=== PATIENT | male | born 1935 | race Caucasian/White ===

== ENCOUNTER 2017-10-09 21:14 | Inpatient (IN) | payer MEDICARE ==
[2017-10-09 21:23] VITALS: BP 132/70; PULSE 96; RESP 14; TEMP 99.5; O2SAT 95
[2017-10-09] MEDS ORDERED: SODIUM CHLORIDE 0.9% FLUSH 10 ML FLUSH IVF PRN (21:45)
[2017-10-09] MEDS ORDERED: LISI-515 PO (21:45)
[2017-10-09] MEDS ORDERED: ASPI-516 CHEW (21:45)
--- NOTE | 2017-10-09 21:56 | PD ---
HPI Chief Complaint: GI Complaint Time Seen by Provider: 21:34 Travel History International Travel<30 days: No Contact w/Intl Traveler<30days: No Traveled to known affect area: No History of Present Illness HPI The patient is a 81 year old male who presents to the [facility] emergency department with a history of cough and congestion that began 2-3 days ago. He reports that he has had an associated clear rhinorrhea and dry cough. The patient reports that over the last day he is also been experiencing urinary frequency and urgency without dysuria. He reports that he only urinates a small amount at a time on an hourly basis. He denies any prior history of UTI or prostate disease. He reports that he is visiting from [place]. He is on a bus tour. He plans on returning back in a few days. He reports that he had a subjective fever yesterday. He has had nausea without vomiting or diarrhea. He reports that when he urinates he has noticed some blood coming from his rectum. He denies having any blood in his usual bowel movement yesterday. He denies having any black or tarry stools. He reports that he has been diagnosed with internal hemorrhoids in the past. His last colonoscopy was 3 years ago and was otherwise unremarkable. He reports having generalized weakness and body aches. He reports having dyspnea on exertion. He reports having chest tightness with coughing. On review of systems otherwise, he denies having neck pain, abdominal pain, vomiting, diarrhea,or neurologic symptoms. [facility] Past Medical History Narrative Medical The patient's past medical history is significant for hypertension, hyperlipidemia, and acid reflux, history of glaucoma GERD: Yes Hypertension: Yes Tetanus Vaccination: < 5 Years Influenza Vaccination: Yes Past Surgical History Narrative Surgical The patient's past surgical history is significant for rotator cuff surgery on the right. Social History Alcohol Use: Yes (occ) Tobacco Use: No Substance Use: No Allergies-Medications (Allergen,Severity, Reaction): Coded Allergies: No Known Allergies (Verified Allergy, Severe, 10/09/17) Reported Meds & Prescriptions Reported Meds & Active Scripts Active Reported Aspirin 81 Mg Chew 81 Mg CHEW DAILY Lisinopril 20 Mg Tab 20 Mg PO DAILY Narrative Medication Ibuprofen 200 mg twice a day for arthritic pain Review of Systems Except as stated in HPI: all other systems reviewed are Neg General / Constitutional: No: Fever Eyes: No: Visual changes HENT: Positive: Rhinorrhea, Congestion, No: Headaches, Sore Throat Cardiovascular: Positive: Dyspnea on exertion, No: Chest Pain or Discomfort Respiratory: Positive: Cough, Shortness of Breath Gastrointestinal: Positive: Hematochezia, Changes in Bowel Habits, Loss of Appetite, No: Nausea, Vomiting, Diarrhea, Abdominal Pain Genitourinary: Positive: Urgency, Frequency, No: Dysuria Musculoskeletal: No: Pain Skin: No Rash Neurologic: Positive: Weakness (Generalized weakness), No: Focal Abnormalities , Change in Mentation, Slurred Speech, Sensory Disturbance Psychiatric: No: Depression Endocrine: No: Polydipsia Hematologic/Lymphatic: No: Easy Bruising Physical Exam Narrative General: The patient is a well-developed well-nourished male in no acute distress. Head and Neck exam: Head is normocephalic atraumatic. Eyes: EOMI, pupils are equal round and reactive to light. Nose: Midline septum with erythematous edematous nasal mucosa and a clear nasal discharge. Mouth: Dentition unremarkable. Moist mucus membranes. Posterior oropharynx is not erythematous. No tonsillar hypertrophy. Uvula midline. Airway patent. Neck: No palpable lymphadenopathy. No nuchal rigidity. No thyromegaly. Cardiovascular: Regular rate and rhythm without murmurs, gallops, or rubs. No pulse deficit to the extremities on simultaneous auscultation and palpation of his radial artery. Lungs: Clear to auscultation bilaterally. No wheezes, rhonchi, or rales. Abdomen: Soft, with reported suprapubic tenderness on palpation, no other tenderness on palpation of the other quadrants of the abdomen. Normal bowel sounds are audible. No tenderness on palpation of McBurney's point. Negative Wray sign. No guarding, rebound, or rigidity. Extremities: No clubbing, cyanosis, or edema. 2+ pulses in all 4 extremities. No calf tenderness on palpation. Back: No costovertebral angle tenderness to palpation. Neurologic Exam: Grossly nonfocal. Skin Exam: No rash noted. Intact skin that is warm and dry. Data Data Last Documented VS Vital Signs Date Time Temp Pulse Resp B/P (MAP) Pulse Ox O2 Delivery O2 Flow Rate FiO2 10/09/17 23:39 74 20 117/57 (77) 98 10/09/17 22:53 Nasal Cannula 2.00 10/09/17 21:23 99.5 Orders Orders Complete Blood Count With Diff (10/09/17 21:43) Comprehensive Metabolic Panel (10/09/17 21:43) Lipase (10/09/17 21:43) Prothrombin Time / Inr (Pt) (10/09/17 21:43) Act Partial Throm Time (Ptt) (10/09/17 21:43) Urinalysis - C+S If Indicated (10/09/17 21:43) Type And Screen (10/09/17 21:43) Chest, Single Ap (10/09/17 21:43) Ecg Monitoring (10/09/17 21:43) Iv Access Insert/Monitor (10/09/17 21:43) Oximetry (10/09/17 21:43) Sodium Chloride 0.9% Flush (Ns Flush) (10/09/17 21:45) Creatine Kinase (Cpk) (10/09/17 21:43) Troponin I (10/09/17 21:43) B-Type Natriuretic Peptide (10/09/17 21:43) Influenzae A/B Antigen (10/09/17 21:43) Sodium Chlorid 0.9% 500 Ml Inj (Ns 500 M (10/09/17 22:15) Pantoprazole Inj (Protonix Inj) (10/09/17 22:15) Pantoprazole Inj (Protonix Inj) (10/09/17 22:15) CKMB (10/09/17 21:45) CKMB% (10/09/17 21:45) Oseltamivir (Tamiflu) (10/09/17 23:00) Ct Abd/Pel W Iv Contrast(Rout) (10/09/17 22:49) Sodium Chlorid 0.9% 500 Ml Inj (Ns 500 M (10/09/17 23:00) Iohexol 350 Inj (Omnipaque 350 Inj) (10/09/17 23:28) Urinary Catheter Insert/Apply (10/10/17 00:09) Admit Order (Ed Use Only) (10/10/17 00:13) Labs Laboratory Tests Test 10/09/17 21:45 White Blood Count 6.9 TH/MM3 Red Blood Count 3.65 MIL/MM3 Hemoglobin 12.7 GM/DL Hematocrit 35.7 % Mean Corpuscular Volume 97.7 FL Mean Corpuscular Hemoglobin 34.9 PG Mean Corpuscular Hemoglobin Concent 35.7 % Red Cell Distribution Width 13.0 % Platelet Count 162 TH/MM3 Mean Platelet Volume 8.9 FL Neutrophils (%) (Auto) 75.4 % Lymphocytes (%) (Auto) 10.3 % Monocytes (%) (Auto) 14.2 % Eosinophils (%) (Auto) 0.0 % Basophils (%) (Auto) 0.1 % Neutrophils # (Auto) 5.2 TH/MM3 Lymphocytes # (Auto) 0.7 TH/MM3 Monocytes # (Auto) 1.0 TH/MM3 Eosinophils # (Auto) 0.0 TH/MM3 Basophils # (Auto) 0.0 TH/MM3 CBC Comment DIFF FINAL Differential Comment Prothrombin Time 11.0 SEC Prothromb Time International Ratio 1.1 RATIO Activated Partial Thromboplast Time 28.2 SEC Blood Urea Nitrogen 19 MG/DL Creatinine 1.09 MG/DL Random Glucose 118 MG/DL Total Protein 7.0 GM/DL Albumin 3.4 GM/DL Calcium Level 8.5 MG/DL Alkaline Phosphatase 68 U/L Aspartate Amino Transf (AST/SGOT) 36 U/L Alanine Aminotransferase (ALT/SGPT) 25 U/L Total Bilirubin 0.3 MG/DL Sodium Level 136 MEQ/L Potassium Level 4.3 MEQ/L Chloride Level 106 MEQ/L Carbon Dioxide Level 21.6 MEQ/L Anion Gap 8 MEQ/L Estimat Glomerular Filtration Rate 65 ML/MIN Total Creatine Kinase 740 U/L Creatine Kinase MB 1.8 NG/ML Creatine Kinase MB % 0.2 % Troponin I 0.05 NG/ML B-Type Natriuretic Peptide 171 PG/ML Lipase 208 U/L [facility] Medical Decision Making Medical Screen Exam Complete: Yes Emergency Medical Condition: Yes Medical Record Reviewed: Yes Interpretation(s) Last Impressions Abdomen/Pelvis CT 10/09/17 5096 Signed Impressions: Service Date/Time: Monday, October 09, 2017 23:13 - CONCLUSION: 1. Several punctate bilateral renal calyceal calculi. No hydronephrosis. 2. Moderate to severe distention of urinary bladder consistent with bladder outlet obstruction versus neurogenic bladder. Patient may benefit from Bunch decompression. 3. Colonic diverticulosis without significant inflammatory change to suggest diverticulitis. 4. 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 5. Subcentimeter hypodense cystic lesion in the left kidney which is too small to fully characterize. 6. Levoscoliosis of the lumbar spine with associated advanced degenerative spondylosis. Collin Silver MD Chest X-Ray 10/09/178 Signed Impressions: Service Date/Time: Monday, October 09, 2017 22:11 - CONCLUSION: 1. No acute cardiopulmonary disease. Bob Andres MD Differential Diagnosis Pneumonia, versus influenza, versus acute coronary syndrome, versus congestive heart failure. Regarding the patient's rectal bleeding, this could be related to hemorrhoids, versus peptic ulcer disease, versus AVM malformation, versus diverticulosis Narrative Course During the course of the patient's emergency department visit, the patient's history, examination, and differential diagnosis were reviewed with the patient. The patient was placed on a medical billing specialist with oximetry and frequent blood pressure monitoring. The patient had IV access obtained and blood work sent for analysis. The patient had an EKG done on arrival. The patient was typed and screened for blood The patient was initially provided normal saline at 500 mL bolus 1. The patient was started on Protonix 80 mg IV followed by a Protonix drip. The patient's laboratory studies were reviewed and remarkable for a white count of 6.9, hemoglobin 12.7, platelets 162 with 75.4 neutrophils, monocytes 14.2, CMP is remarkable for BUN of 19, GFR 65, glucose 118, CPK 740, MB percent 0.2, troponin I 0.05, BNP 171, lipase 208. PT 11, PTT 28.2, urinalysis unremarkable. The patient's influenza testing was positive for influenza A antigen. The patient was given Tamiflu 75 mg p.o. 1. Radiology studies were reviewed and remarkable for a chest x-ray that shows no acute cardiopulmonary disease, CT scan of the abdomen pelvis shows several punctate bilateral renal calculi no hydronephrosis, moderate to severe distention of the urinary bladder consistent with bladder outlet obstruction versus neurogenic bladder. Patient may benefit from Bunch catheter decompression. A Bunch catheter was placed to gravity in this patient. 1500 mL of urine was evacuated. The patient will have his catheter maintained. CT scan also reveals colonic diverticulosis without inflammatory change, small focal saccular distal aortic aneurysm measuring up to 2.7 cm. The patient will be admitted to the hospital for evaluation and treatment of a GI bleed, influenza, urinary retention. The patient's results were discussed with the patient, including the plan of care. I explained that further testing and/ or monitoring is indicated based on the patient's history, examination, and/ or laboratory findings. Therefore, I recommended admission for additional evaluation. The patient expressed understanding and was agreeable with this plan. The patient was admitted to the hospital in guarded condition and [facility] Phys[facility] Communication Physician Communication The patient's case including history, pertinent physical examination findings, and laboratory studies were discussed with Kenyatta the nurse practitioner. It was agreed that the [facility] Diagnosis Primary Impression: GI bleed Qualified Codes: K92.1 - Melena Additional Impressions: Urinary retention Influenza Admitting Information Admitting Physician Requests: it Chyna Palmer MD Oct 09, 2017 21:56
[2017-10-09 22:00] VITALS: BP 96/62; PULSE 73; RESP 20; O2SAT 98
[2017-10-09] MEDS ORDERED: PANTOPRAZOLE INJ 80 MG in SODIUM CHLORIDE 0.9% INJ 35 ML IV ONE (22:15)
[2017-10-09] MEDS ORDERED: PANTOPRAZOLE INJ 80 MG in SODIUM CHLORIDE 0.9% INJ 100 ML IV SCH (22:15)
[2017-10-09] MEDS ORDERED: SODIUM CHLORID 0.9% 500 ML INJ 500 ML IV ONE ×2 (22:15→23:00)
[2017-10-09 22:18] LABS: AUTOMATED NEUTROPHIL # 5.2 TH/MM3 (1.8-7.7); BASOPHIL % 0.1 % (0.0-2.0); HEMATOCRIT 35.7 % (39.0-51.0); HEMOGLOBIN 12.7 GM/DL (13.0-17.0); LYMPH % 10.3 % (9.0-44.0); LYMPHOCYTE # 0.7 TH/MM3 (1.0-4.8); MEAN CELL VOLUME 97.7 FL (80.0-100.0); MEAN CORPUSCULAR HEMOGLOBIN 34.9 PG (27.0-34.0); MEAN CORPUSCULAR HGB CONC 35.7 % (32.0-36.0); MEAN PLATELET VOLUME 8.9 FL (7.0-11.0); MONO % 14.2 % (0.0-8.0); NEUT % 75.4 % (16.0-70.0); PLATELET COUNT 162 TH/MM3 (150-450); RED BLOOD COUNT 3.65 MIL/MM3 (4.50-5.90); WHITE BLOOD COUNT 6.9 TH/MM3 (4.0-11.0)
[2017-10-09 22:20] LABS: INTERNATIONAL NORMALIZED RATIO 1.1 RATIO
[2017-10-09 22:21] LABS: ALBUMIN 3.4 GM/DL (3.4-5.0); AST (GOT) 36 U/L (15-37); BICARBONATE 21.6 MEQ/L (21.0-32.0); BLOOD UREA NITROGEN 19 MG/DL (7-18); CALCIUM 8.5 MG/DL (8.5-10.1); CHLORIDE 106 MEQ/L (98-107); CREATININE 1.09 MG/DL (0.60-1.30); GLOMERULAR FILTRATION RATE 65 ML/MIN (>89); GLUCOSE,RANDOM 118 MG/DL (74-106); SODIUM (NA) 136 MEQ/L (136-145)
[2017-10-09 22:23] LABS: ALT (GPT) 25 U/L (12-78)
--- NOTE | 2017-10-09 22:24 | RADRPT ---
EXAM DATE/TIME: 10/09/2017 22:11 [facility] COMPARISON: No previous studies available for comparison. INDICATIONS : Shortness of breath. MEDICAL HISTORY : None. SURGICAL HISTORY : None. ENCOUNTER: Initial ACUITY: 1 day PAIN SCORE: 0/10 LOCATION: Bilateral chest FINDINGS: A single view of the chest demonstrates the lungs to be symmetrically aerated without evidence of mas s, infiltrate or effusion. The cardiomediastinal contours are unremarkable. Osseous structures are intact. CONCLUSION: 1. No acute cardiopulmonary disease. Bob Andres MD on October 09, 2017 at 22:23 Board Certified Radiologist. This report was verified electronically.
[2017-10-09 22:28] LABS: ALKALINE PHOSPHATASE 68 U/L (45-117); TOTAL BILIRUBIN ADULT 0.3 MG/DL (0.2-1.0); TROPONIN I 0.05 NG/ML (0.02-0.05)
[2017-10-09 22:30] VITALS: BP 108/56; PULSE 74; RESP 20; O2SAT 97
[2017-10-09 22:53] VITALS: BP 115/61; PULSE 75; RESP 20; O2SAT 98
[2017-10-09] MEDS ORDERED: OSELTAMIVIR PHOSPHATE 75 MG CAP PO ONE (23:00)
[2017-10-09] MEDS ORDERED: IOHEXOL 350 MG/ML 10 ML VIAL (for RAD DIAG) IVCONTRAST ONE (23:28)
[2017-10-09 23:39] VITALS: BP 117/57; PULSE 74; RESP 20; O2SAT 98
--- NOTE | 2017-10-09 23:51 | RADRPT ---
EXAM DATE/TIME: 10/09/2017 23:13 [facility] COMPARISON: No previous studies available for comparison. INDICATIONS : Lower abdominal pain, dysuria and blood in stool. IV CONTRAST: 90 cc Omnipaque 350 (iohexol) IV ORAL CONTRAST: No oral contrast ingested. RADIATION DOSE: 9.36 CTDIvol (mGy) MEDICAL HISTORY : Hypertension. Gastroesophageal reflux disease. SURGICAL HISTORY : None. ENCOUNTER: Initial ACUITY: 2 days PAIN SCALE: 7/10 LOCATION: Abdomen. TECHNIQUE: Volumetric scanning of the abdomen and pelvis was performed. Using automated exposure control and ad justment of the mA and/or kV according to patient size, radiation dose was kept as low as reasonably achievable to obtain optimal diagnostic quality images. DICOM format image data is available electro nically for review and comparison. FINDINGS: LOWER LUNGS: The visualized lower lungs are clear. LIVER: Homogeneous density without lesion. There is no dilation of the biliary tree. No calcified gallston es. SPLEEN: Normal size without lesion. PANCREAS: Within normal limits. KIDNEYS: Indeterminate density subcentimeter hypodense cystic lesion in the mid left kidney posteriorly. Punct ate bilateral calyceal calculi. Kidneys otherwise demonstrate symmetrical enhancement without hydrone phrosis. ADRENAL GLANDS: Within normal limits. VASCULAR: Focal saccular distal aortic aneurysm measuring up to 2.7 cm with moderate mural thrombus. BOWEL/MESENTERY: The stomach, small bowel, and colon demonstrate no acute abnormality. Mild sigmoid diverticulosis. S cattered colonic diverticula in the remainder of the colon. No significant inflammatory change. There is no free intraperitoneal air or fluid. ABDOMINAL WALL: Within normal limits. RETROPERITONEUM: There is no lymphadenopathy. BLADDER: Moderate to severely distended bladder. No focal bladder wall thickening or bladder calculi. REPRODUCTIVE: Within normal limits. INGUINAL: There is no lymphadenopathy or hernia. MUSCULOSKELETAL: Levoscoliosis of the lumbar spine with advanced degenerative spondylosis of the lower lumbar spine. CONCLUSION: 1. Several punctate bilateral renal calyceal calculi. No hydronephrosis. 2. Moderate to severe distention of urinary bladder consistent with bladder outlet obstruction versus neurogenic bladder. Patient may benefit from Bunch decompression. 3. Colonic diverticulosis without significant inflammatory change to suggest diverticulitis. 4. 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 5. Subcentimeter hypodense cystic lesion in the left kidney which is too small to fully characterize. 6. Levoscoliosis of the lumbar spine with associated advanced degenerative spondylosis. Collin Silver MD on October 09, 2017 at 23:44 Board Certified Radiologist. This report was verified electronically.
[2017-10-10] VITALS (8 sets, daily range): BP systolic 115–129; BP diastolic 57–79; PULSE 78–85; RESP 16–20; TEMP 98.7–99.2; O2SAT 95–97
--- NOTE | 2017-10-10 00:39 | HHI.HP ---
[facility]Staff Admission Diagnosis GI Bleed, Influenza, Urinary retention Diagnoses: (1) GI bleed (2) Influenza (3) Urinary retention Chief Complaint: Cough and congestion Urinary retention Rectal bleed Travel History International Travel<30 Days: No Contact w/Intl Traveler <30 Da: No Traveled to Known Affected Are: No History of Present Illness This is a pleasant 81-year-old male patient with known medical history of hypertension and GERD who presented to the ED with multiple complaints including cough and congestion, urinary retention and rectal bleeding. Patient states that for the past 2 days he has had a nonproductive cough and congestion , shortness of breath, generalized weakness and body aches. Is also complains of urinary frequency, denies any dysuria. Does admit to subjective fevers. Denies any nausea, vomiting or diarrhea. Does state that he is noticed blood from his rectum as well for the past 2 days. Denies any history of UTI or kidney stones. Does admit to hemorrhoids. Underwent a colonoscopy 3 years ago which was reportedly unremarkable. Patient does take a daily aspirin. As well as ibuprofen for arthritic pain twice a day. Does admit to poor appetite. Patient is visiting from [place] on a bus tour. Supposed to return home on Sunday morning. Review of Systems Constitutional: COMPLAINS OF: Fatigue, Fever, Chills Eyes: DENIES: Blurred vision, Diplopia Respiratory: COMPLAINS OF: Cough, Shortness of breath, DENIES: Sputum production Cardiovascular: DENIES: Chest pain, Palpitations Gastrointestinal: COMPLAINS OF: Bloody stools, DENIES: Abdominal pain, Black stools, Constipation, Diarrhea, Nausea, Vomiting Musculoskeletal: DENIES: Joint pain Neurologic: DENIES: Abnormal gait Psychiatric: DENIES: Anxiety Except as stated in HPI: all other systems reviewed are Neg Past Family Social History Past Medical History Hypertension GERD Past Surgical History Rotator cuff repair Reported Medications Active Reported Aspirin 81 Mg Chew 81 Mg CHEW DAILY Lisinopril 20 Mg Tab 20 Mg PO DAILY Allergies: Coded Allergies: No Known Allergies (Verified Allergy, Severe, 10/09/17) Active Ordered Medications Current Medications Medications (Trade) Dose Ordered Sig/Stu Route Start Time Stop Time Status Last Admin (NS Flush) 2 ml UNSCH PRN IVF 10/09/17 21:45 Pantoprazole Sodium 80 mg/ Sodium Chloride 100 ml @ 10 mls/hr CONTINUOUS IV 10/09/17 22:15 10/09/17 22:51 Sodium Chloride 1,000 ml @ 75 mls/hr [id number] IV 10/10/17 00:31 (NS Flush) 2 ml UNSCH PRN IV FLUSH 10/10/17 00:45 (NS Flush) 2 ml BID IV FLUSH 10/10/17 09:00 (Tylenol) 650 mg Q4H PRN PO 10/10/17 00:45 (Zofran Inj) 4 mg Q6H PRN IVP 10/10/17 00:45 (Narcan Inj) 0.4 mg UNSCH PRN IV PUSH 10/10/17 00:45 (Gilma-Colace) 1 tab BID PO 10/10/17 09:00 (Milk Of Magnnatty Liq) 30 ml Q12H PRN PO 10/10/17 00:45 (Senokot) 17.2 mg Q12H PRN PO 10/10/17 00:45 (Dulcolax Supp) 10 mg DAILY PRN RECTAL 10/10/17 00:45 (Prinivil) 20 mg DAILY PO 10/10/17 09:00 (Tamiflu) 75 mg BID PO 10/10/17 09:00 Family History Maternal medical history significant for diabetes in [place]. Social History Denies any tobacco use. Does admit to occasional alcohol use. Denies any illicit drug use. Physical Exam Vital Signs Vital Signs Date Time Temp Pulse Resp B/P (MAP) Pulse Ox O2 Delivery O2 Flow Rate FiO2 10/10/17 00:38 79 20 117/57 (77) 97 Nasal Cannula 10/09/17 23:39 74 20 117/57 (77) 98 10/09/17 22:53 75 20 115/61 (79) 98 Nasal Cannula 2.00 10/09/17 22:30 74 20 108/56 (73) 97 Nasal Cannula 2.00 10/09/17 22:00 73 20 96/62 (73) 98 Nasal Cannula 2.00 10/09/17 21:49 18 10/09/17 21:23 99.5 96 14 132/70 (02) 95 Physical Exam GENERAL: Well-developed, well-nourished patient in NAD. On supplemental O2. SKIN: Warm and dry. No rash. HEAD: Normocephalic. Atraumatic. EYES: Pupils equal and round. No scleral icterus. No injection or drainage. ENT: No nasal bleeding or discharge. Mucous membranes pink and moist. NECK: Supple. Trachea midline. CARDIOVASCULAR: Regular rate and rhythm. S1, S2 noted. No murmur appreciated. RESPIRATORY: No accessory muscle use. Clear to auscultation. Breath sounds equal bilaterally. GASTROINTESTINAL: Abdomen soft, non-tender, nondistended. Normoactive bowel sounds x4. : Bunch catheter MUSCULOSKELETAL: No obvious deformities. Extremities without clubbing, cyanosis , or edema. NEUROLOGICAL: Awake and alert. No obvious cranial nerve deficits. Motor grossly within normal limits. 5/5 muscle strength in bilateral upper and lower extremities. Normal speech. Laboratory Laboratory Tests Test 10/09/17 21:45 White Blood Count 6.9 Red Blood Count 3.65 Hemoglobin 12.7 Hematocrit 35.7 Mean Corpuscular Volume 97.7 Mean Corpuscular Hemoglobin 34.9 Mean Corpuscular Hemoglobin Concent 35.7 Red Cell Distribution Width 13.0 Platelet Count 162 Mean Platelet Volume 8.9 Neutrophils (%) (Auto) 75.4 Lymphocytes (%) (Auto) 10.3 Monocytes (%) (Auto) 14.2 Eosinophils (%) (Auto) 0.0 Basophils (%) (Auto) 0.1 Neutrophils # (Auto) 5.2 Lymphocytes # (Auto) 0.7 Monocytes # (Auto) 1.0 Eosinophils # (Auto) 0.0 Basophils # (Auto) 0.0 CBC Comment DIFF FINAL Differential Comment Prothrombin Time 11.0 Prothromb Time International Ratio 1.1 Activated Partial Thromboplast Time 28.2 Blood Urea Nitrogen 19 Creatinine 1.09 Random Glucose 118 Total Protein 7.0 Albumin 3.4 Calcium Level 8.5 Alkaline Phosphatase 68 Aspartate Amino Transf (AST/SGOT) 36 Alanine Aminotransferase (ALT/SGPT) 25 Total Bilirubin 0.3 Sodium Level 136 Potassium Level 4.3 Chloride Level 106 Carbon Dioxide Level 21.6 Anion Gap 8 Estimat Glomerular Filtration Rate 65 Total Creatine Kinase 740 Creatine Kinase MB 1.8 Creatine Kinase MB % 0.2 Troponin I 0.05 B-Type Natriuretic Peptide 171 Lipase 208 Date/Time Source Procedure Growth Status 10/09/17 21:45 Nasal Aspirate Influenza Types A,B Antigen (CHANCE) - Final Positive For Flu A Antigen Complete Result Diagram: 10/09/17214410/09/172144 Septic Shock Reassessment Septic shock perfusion: reassessment completed Caprini VTE Risk Assessment Caprini VTE Risk Assessment: Mod/High Risk (score >= 2) Caprini Risk Assessment Model Point Value = 1 Point Value = 2 Point Value = 3 Point Value = 5 Age 41-60 Minor surgery BMI > 25 kg/m2 Swollen legs Varicose veins or History of unexplained or recurrent spontaneous Oral contraceptives or hormone replacement Sepsis (< 1 month) Serious lung disease, including pneumonia (< 1 month) Abnormal pulmonary function Acute myocardial infarction Congestive heart failure (< 1 month) History of inflammatory bowel disease Medical patient at bed rest Age 61-74 Arthroscopic surgery Major open surgery (> 45 min) Laparoscopic surgery (> 45 min) Malignancy Confined to bed (> 72 hours) Immobilizing plaster cast Central venous access Age >= 75 History of VTE Family history of VTE Factor V Leiden Prothrombin [id number] Lupus anticoagulant Anticardiolipin antibodies Elevated serum homocysteine Heparin-induced thrombocytopenia Other congenital or acquired thrombophilia Stroke (< 1 month) Elective arthroplasty Hip, pelvis, or leg fracture Acute spinal cord injury (< 1 month) Prophylaxis Regimen Total Risk Factor Score Risk Level Prophylaxis Regimen 0-1 Low Early ambulation 2 Moderate Order ONE of the following: *Sequential Compression Device (SCD) *Heparin 5000 units SQ BID 3-4 Higher Order ONE of the following medications: *Heparin 5000 units SQ TID *Enoxaparin/Lovenox 40 mg SQ daily (WT < 150 kg, CrCl > 30 mL/min) *Enoxaparin/Lovenox 30 mg SQ daily (WT < 150 kg, CrCl > 10-29 mL/min) *Enoxaparin/Lovenox 30 mg SQ BID (WT < 150 kg, CrCl > 30 mL/min) AND/OR *Sequential Compression Device (SCD) 5 or more Highest Order ONE of the following medications: *Heparin 5000 units SQ TID (Preferred with Epidurals) *Enoxaparin/Lovenox 40 mg SQ daily (WT < 150 kg, CrCl > 30 mL/min) *Enoxaparin/Lovenox 30 mg SQ daily (WT < 150 kg, CrCl > 10-29 mL/min) *Enoxaparin/Lovenox 30 mg SQ BID (WT < 150 kg, CrCl > 30 mL/min) AND *Sequential Compression Device (SCD) Assessment and Plan Problem List: (1) GI bleed ICD Code: K92.2 - Gastrointestinal hemorrhage, unspecified (2) Influenza ICD Code: J11.1 - Influenza due to unidentified influenza virus with other respiratory manifestations (3) Urinary retention ICD Code: R33.9 - Retention of urine, unspecified Assessment and Plan This is a pleasant 81-year-old male patient with known medical history of hypertension and GERD who presented to the ED with multiple complaints including cough and congestion, urinary retention and rectal bleeding. Influenza with presence of cough, dyspnea, sore throat and congestion Nasal wash positive for influenza antigen A. Chest x-ray reviewed showing no acute cardiopulmonary disease. Started on Tamiflu 75 mg twice daily. Supplemental O2 as needed, patient on 2 L nasal cannula. GI bleed with active hematozemia Abdominal/pelvis CT reviewed showing colonic diverticulosis without diverticulitis. Several bilateral renal calculi. No hydronephrosis. Severe distention of urinary bladder. Placed on Protonix drip. Avoid NSAIDs. Continue IV fluid. Gastroenterology consulted, appreciate recommendations. Will keep n.p.o. for now for possible intervention. Type and screen. Hemoglobin 12.7/hematocrit 35.7. trend H&H. Transfuse as needed. Continue cardiac telemetry, monitor for any arrhythmias. Bladder outlet obstruction with urinary retention suspect secondary to bilateral renal calyceal calculi CT abdomen/pelvis as above. Bunch catheter inserted, immediately 1500 mL return. Continue for now. Monitor intake and output. CPK 740. Trend. Continue IV fluids. Status post 1 L NS bolus in ED. UA unremarkable. Urology consulted, appreciate recommendations. Hypertension, chronic: Continue home lisinopril. Monitor BP trends. DVT prophylaxis: SCDs. Hold chemical prophylaxis, active bleeding. Physician Certification 2 Midnight Certification Type: Admission for Inpatient Services Order for Inpatient Services The services are ordered in accordance with Medicare regulations or non- Medicare payer requirements, as applicable. In the case of services not specified as inpatient-only, they are appropriately provided as inpatient services in accordance with the 2-midnight benchmark. Estimated LOS (days): 3 3 days is the estimated time the patient will need to remain in the hospital, assuming treatment plan goals are met and no additional complications. Post-Hospital Plan: Not yet determined Keeley Savage Oct 10, 2017 00:39
[2017-10-10] MEDS ORDERED: MAGNESIUM HYDROXIDE SUSP 30 ML CUP PO PRN (00:45)
[2017-10-10] MEDS ORDERED: SENNOSIDES 8.6 MG TAB PO PRN (00:45)
[2017-10-10] MEDS ORDERED: BISACODYL 10 MG SUPP RECTAL PRN (00:45)
[2017-10-10] MEDS ORDERED: ACETAMINOPHEN 325 MG TAB PO PRN (00:45)
[2017-10-10] MEDS ORDERED: NALOXONE HCL 0.4 MG/ML AMP IV PUSH PRN (00:45)
[2017-10-10] MEDS ORDERED: ONDANSETRON HCL 4 MG/2 ML VIAL IVP PRN (00:45)
[2017-10-10] MEDS ORDERED: SODIUM CHLORIDE 0.9% FLUSH 10 ML FLUSH IV FLUSH PRN (00:45)
[2017-10-10 00:49] LABS: BILIRUBIN, URINE NEG (NEG); BLOOD, URINE NEG (NEG); GLUCOSE,URINE NEG (NEG); KETONE, URINE NEG (NEG); NITRITE,URINE NEG (NEG); URINE COLOR YELLOW (YELLW/STRAW); URINE LEUKOCYTE ESTERASE NEG (NEG)
[2017-10-10] MEDS: SODIUM CHLOR 0.45% 1000 ML INJ 1,000 ML IV SCH ×3 (01:06→21:25)
[2017-10-10] MEDS: SODIUM CHLORIDE 0.9% FLUSH 10 ML FLUSH IV FLUSH SCH ×2 (07:48→21:21)
[2017-10-10] MEDS: DOCUSATE SODIUM 50 MG/SENNA 8.6 MG TAB PO SCH ×2 (07:48→21:21)
--- NOTE | 2017-10-10 09:21 | MB ---
cc: Kj Mcconnell DO DATE OF CONSULT: 10/10/2017 HISTORY OF PRESENT ILLNESS: Mr. Gonzalez is a pleasant 81-year-old male who is visiting the area from [place], who developed urinary retention. He started having difficulty urinating over the last 3 days with frequency, urgency and incomplete bladder emptying. He states that prior to this he did not really have any difficulty with urination, only he noted incomplete emptying at times. His nocturia was approximately 0-1 time. He denied straining or any history of urinary tract infections or prior prostate problems. He denies any family history of prostate cancer. PAST MEDICAL HISTORY: Includes GERD, hypertension, hyperlipidemia and glaucoma. PAST SURGICAL HISTORY: Rotator cuff surgery on the right side. SOCIAL HISTORY: History of alcohol use in the past occasionally. Denies smoking or drugs. ALLERGIES: NONE. MEDICATIONS: Please refer to the chart. REVIEW OF SYSTEMS: Denies any chest pain or shortness of breath. Denies any abdominal pain at present. Does note urgency and frequency with incomplete bladder emptying. Denies rashes, gait disturbances, bleeding disorders. The remaining review of systems were reviewed and were negative. PHYSICAL EXAMINATION: VITAL SIGNS: Today, temp is 98.8, heart rate 78, respiratory rate 16, blood pressure 128/77, 95% on room air. GENERAL: He is a well developed, well nourished 81-year-old male, in no acute distress. HEENT: Normocephalic, atraumatic. Pupils equal, round and reactive to light. Extraocular movements intact. NECK: Supple. HEART: Regular rate and rhythm. LUNGS: Clear. ABDOMEN: Soft, nontender, nondistended. GENITOURINARY: Normal phallus, testes descended. Bunch catheter in place, draining clear urine. RECTAL: 40 gram prostate, smooth. There is no nodularity. EXTREMITIES: Show no cyanosis, clubbing or edema. LABORATORY STUDIES: White count 6.9, hemoglobin 12.7, hematocrit 35.7, platelet count of 162. Sodium 136, potassium 4.3, chloride 106, CO2 of 21.6, BUN of 19, creatinine 1.0, glucose of 118. Urinalysis was negative. IMAGING STUDIES: Demonstrated small bilateral renal calculi, which were punctate in size. Severe distention of the urinary bladder, consistent with bladder outlet obstruction. ASSESSMENT AND PLAN: A 81-year-old male presents with urinary retention/bladder outlet obstruction. 1. We will maintain the Bunch catheter. 2. Start Flomax 0.4 mg p.o. at bedtime. 3. I recommend leg bag teaching with the Bunch catheter. Patient to be sent home with the Bunch back to [place] and continued Flomax. He will receive a void trial up there and follow up with a urologist. Thank you for consult and allowing me to participate in the care of this patient. DO HARSHA Bautista/JEREMIAH , 08:35 AM , 09:21 AM
[2017-10-10 09:27] LABS: AUTOMATED NEUTROPHIL # 4.5 TH/MM3 (1.8-7.7); BASOPHIL % 0.1 % (0.0-2.0); EOSINOPHIL % 0.1 % (0.0-4.0); HEMATOCRIT 32.8 % (39.0-51.0); HEMOGLOBIN 11.4 GM/DL (13.0-17.0); LYMPH % 17.5 % (9.0-44.0); LYMPHOCYTE # 1.2 TH/MM3 (1.0-4.8); MEAN CELL VOLUME 97.8 FL (80.0-100.0); MEAN CORPUSCULAR HGB CONC 34.8 % (32.0-36.0); MEAN PLATELET VOLUME 8.7 FL (7.0-11.0); MONO % 16.3 % (0.0-8.0); MONOCYTE # 1.1 TH/MM3 (0-0.9); PLATELET COUNT 144 TH/MM3 (150-450); RED BLOOD COUNT 3.36 MIL/MM3 (4.50-5.90); WHITE BLOOD COUNT 6.8 TH/MM3 (4.0-11.0)
[2017-10-10 09:50] LABS: BICARBONATE 24.8 MEQ/L (21.0-32.0); CALCIUM 8.1 MG/DL (8.5-10.1); CREATININE 0.87 MG/DL (0.60-1.30)
[2017-10-10] MEDS: TAMSULOSIN HCL 0.4 MG CAP PO SCH (09:58)
[2017-10-10] MEDS: LISINOPRIL 20 MG TAB PO SCH (09:58)
[2017-10-10] MEDS: OSELTAMIVIR PHOSPHATE 75 MG CAP PO SCH ×2 (09:59→21:21)
--- NOTE | 2017-10-10 10:42 | PD.CONS ---
HPI History of Present Illness This is a 81 year old male who presented for cough, congestion, black tarry stool and BRBPR. He was found to be pos for influenza A. 3 days ago he noticed BRBPR and today he is having black tarry stool. He admits daily use ibuprofen and aspirin for his arthritis. He had colonoscopy in [place] and was normal. Never had EGD. He is visiting and wants to go home tomorrow. Denies n /v, weight loss, abd pain. (Halima Olivares) PFSH Past Medical History Hypertension GERD Past Surgical History Rotator cuff repair (Halima Olivares) Coded Allergies: No Known Allergies (Verified Allergy, Severe, 10/09/17) Family History Maternal medical history significant for diabetes in [place]. Social History Denies any tobacco use. Does admit to occasional alcohol use. Denies any illicit drug use. (Halima Olivares) Review of Systems Constitutional: COMPLAINS OF: Fatigue, Fever Endocrine: DENIES: Polydipsia Eyes: DENIES: Blurred vision Ears, nose, mouth, throat: DENIES: Hearing loss Respiratory: DENIES: Cough Cardiovascular: DENIES: Chest pain Gastrointestinal: COMPLAINS OF: Black stools, Bloody stools, DENIES: Abdominal pain, Nausea, Vomiting Musculoskeletal: DENIES: Muscle aches Integumentary: DENIES: Abnormal pigmentation Hematologic/lymphatic: DENIES: Bruising Neurologic: DENIES: Headache Psychiatric: DENIES: Confusion (Halima Olivares) GI Exam Vitals I&O Vital Signs Date Time Temp Pulse Resp B/P (MAP) Pulse Ox O2 Delivery O2 Flow Rate FiO2 10/10/17 08:00 99.2 83 18 129/79 (96) 95 10/10/17 02:30 98.8 78 16 128/77 (94) 95 10/10/17 01:12 97 Nasal Cannula 2.00 10/10/17 00:38 79 20 117/57 (77) 97 Nasal Cannula 10/09/17 23:39 74 20 117/57 (77) 98 10/09/17 22:53 75 20 115/61 (79) 98 Nasal Cannula 2.00 10/09/17 22:30 74 20 108/56 (73) 97 Nasal Cannula 2.00 10/09/17 22:00 73 20 96/62 (73) 98 Nasal Cannula 2.00 10/09/17 21:49 18 10/09/17 21:23 99.5 96 14 132/70 (90) 95 I/O 10/09/17 10/09/17 10/09/17 10/10/17 10/10/17 10/10/17 07:00 15:00 23:00 07:00 15:00 23:00 Intake Total 500 ml 500 ml Output Total 600 ml 800 ml Balance 500 ml -100 ml -800 ml Intake Oral 0 ml IV Total 500 ml 500 ml Output Urine Total 600 ml 800 ml # Bowel Movements 0 Imaging Last Impressions Abdomen/Pelvis CT 10/09/179 Signed Impressions: Service Date/Time: Monday, October 09, 2017 23:13 - CONCLUSION: 1. Several punctate bilateral renal calyceal calculi. No hydronephrosis. 2. Moderate to severe distention of urinary bladder consistent with bladder outlet obstruction versus neurogenic bladder. Patient may benefit from Bunch decompression. 3. Colonic diverticulosis without significant inflammatory change to suggest diverticulitis. 4. 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 5. Subcentimeter hypodense cystic lesion in the left kidney which is too small to fully characterize. 6. Levoscoliosis of the lumbar spine with associated advanced degenerative spondylosis. Collin Silver MD Chest X-Ray 10/09/176 Signed Impressions: Service Date/Time: Monday, October 09, 2017 22:11 - CONCLUSION: 1. No acute cardiopulmonary disease. Bob Andres MD Laboratory Test 10/09/17 21:45 10/10/17 00:30 10/10/17 08:20 White Blood Count 6.9 TH/MM3 6.8 TH/MM3 Red Blood Count 3.65 MIL/MM3 3.36 MIL/MM3 Hemoglobin 12.7 GM/DL 11.4 GM/DL Hematocrit 35.7 % 32.8 % Mean Corpuscular Volume 97.7 FL 97.8 FL Mean Corpuscular Hemoglobin 34.9 PG 34.0 PG Mean Corpuscular Hemoglobin Concent 35.7 % 34.8 % Red Cell Distribution Width 13.0 % 13.0 % Platelet Count 162 TH/MM3 144 TH/MM3 Mean Platelet Volume 8.9 FL 8.7 FL Neutrophils (%) (Auto) 75.4 % 66.0 % Lymphocytes (%) (Auto) 10.3 % 17.5 % Monocytes (%) (Auto) 14.2 % 16.3 % Eosinophils (%) (Auto) 0.0 % 0.1 % Basophils (%) (Auto) 0.1 % 0.1 % Neutrophils # (Auto) 5.2 TH/MM3 4.5 TH/MM3 Lymphocytes # (Auto) 0.7 TH/MM3 1.2 TH/MM3 Monocytes # (Auto) 1.0 TH/MM3 1.1 TH/MM3 Eosinophils # (Auto) 0.0 TH/MM3 0.0 TH/MM3 Basophils # (Auto) 0.0 TH/MM3 0.0 TH/MM3 CBC Comment DIFF FINAL DIFF FINAL Differential Comment Prothrombin Time 11.0 SEC Prothromb Time International Ratio 1.1 RATIO Activated Partial Thromboplast Time 28.2 SEC Blood Urea Nitrogen 19 MG/DL 16 MG/DL Creatinine 1.09 MG/DL 0.87 MG/DL Random Glucose 118 MG/DL 96 MG/DL Total Protein 7.0 GM/DL Albumin 3.4 GM/DL Calcium Level 8.5 MG/DL 8.1 MG/DL Alkaline Phosphatase 68 U/L Aspartate Amino Transf (AST/SGOT) 36 U/L Alanine Aminotransferase (ALT/SGPT) 25 U/L Total Bilirubin 0.3 MG/DL Sodium Level 136 MEQ/L 137 MEQ/L Potassium Level 4.3 MEQ/L 4.0 MEQ/L Chloride Level 106 MEQ/L 106 MEQ/L Carbon Dioxide Level 21.6 MEQ/L 24.8 MEQ/L Anion Gap 8 MEQ/L 6 MEQ/L Estimat Glomerular Filtration Rate 65 ML/MIN 85 ML/MIN Total Creatine Kinase 740 U/L 596 U/L Creatine Kinase MB 1.8 NG/ML 2.0 NG/ML Creatine Kinase MB % 0.2 % 0.3 % Troponin I 0.05 NG/ML B-Type Natriuretic Peptide 171 PG/ML Lipase 208 U/L Urine Color YELLOW Urine Turbidity CLEAR Urine pH 6.0 Urine Specific [place] 1.021 Urine Protein TRACE mg/dL Urine Glucose (UA) NEG mg/dL Urine Ketones NEG mg/dL Urine Occult Blood NEG Urine Nitrite NEG Urine Bilirubin NEG Urine Urobilinogen LESS THAN 2.0 MG/DL Urine Leukocyte Esterase NEG Urine RBC 1 /hpf Urine WBC LESS THAN 1 /hpf Microscopic Urinalysis Comment CULT NOT INDICATED Date/Time Source Procedure Growth Status 10/09/17 21:45 Nasal Aspirate Influenza Types A,B Antigen (CHANCE) - Final Positive For Flu A Antigen Complete Physical Examination HEENT: PERRL; normocephalic; atraumatic; no jaundice. CHEST: CTA CARDIAC: RRR ABDOMEN: Soft, nondistended, nontender; no hepatosplenomegaly; bowel sounds are present in all four quadrants. EXTREMITIES: No clubbing, cyanosis, or edema. SKIN: Normal; no rash; no jaundice. OIL RAG WASHER: No focal deficits; alert and oriented times three. (Halima Olivares) Assessment and Plan Plan ASSESSMENT - black tarry stool, BRBPR - few days ago onset BRBPR and now having black tarry stool. Last colonoscopy [address] shows diverticulosis. he wants to go home and will not agree to recommended EGD and colonoscopy, will agree to EGD today. - anemia - mild, 2/2 above. - influenza A PLAN - EGD today - obtain consent - keep NPO - notify GI of active bleeding - further recs to follow pt seen by myself and Dr Stanislaw medrano this note is on his behalf (Halima Olivares) Plan Patient was seen and examined, agree with above-noted, patient only agreeable to have an endoscopy so we'll plan on doing that today (Jossue Dover MD) Halima Olivares Oct 10, 2017 10:42 Jossue Dover MD Oct 10, 2017 15:56
[2017-10-10] MEDS ORDERED: SUCCINYLCHOLINE CHLORIDE 100 MG/5 ML SYRINGE IV PUSH ONE (12:00)
[2017-10-10] MEDS ORDERED: PHENYLEPH/NS 1000 MCG/10 ML SYR IV ONE (12:00)
[2017-10-10] MEDS ORDERED: LIDOCAINE HCL 1% PF 5 ML SYRINGE OTHER ONE (12:00)
[2017-10-10] MEDS ORDERED: PROPOFOL 200 MG/20 ML AMP IV ONE (12:00)
--- NOTE | 2017-10-10 16:01 | HHI.PR ---
Addendum to Inpatient Note Addendum Reason: Additional Documentation Additional Information The patient states he is having still some hematochezia, however it has slowed down. Patient is awake alert oriented 3, abdomen is soft, nontender nondistended. Patient denies any chest pain abdominal pain, nausea or vomiting. Hemoglobin stable. Urology has seen the patient and recommended discharging the patient with a leg bag and the Bunch catheter and to follow-up at home in [place]. The patient is scheduled for an EGD/colonoscopy in [facility]. Frank Mccray MD Oct 10, 2017 16:01
--- NOTE | 2017-10-10 19:45 | PD.PROCEDR ---
GI Procedure PROCEDURE PERFORMED upper endoscopy with biopsy and dilation INDICATION FOR PROCEDURE [] PROCEDURE: The procedure, risks and benefits were discussed with Mr. Gonzalez and informed consent was obtained. Anesthesia sedated him with Diprivan. He was placed in the left lateral decubitus position. EGD: The Pentax videoscope was introduced through the oropharynx and advanced to the second portion of the duodenum under direct visualization. Retroflexion was performed in the stomach. Bx from antrum, dilation of esophageal stricture with Savary dilator size 17 mm ESTIMATED BLOOD LOSS: None SPECIMENS REMOVED: Antrum COMPLICATIONS: None IMPRESSION: Small gastric ulcer biopsy was done from the antrum to rule out H. pylori Mild esophagitis biopsy from the GE junction Esophageal stricture status post dilation with savory guidewire size 17 mm PLAN: No NSAIDs Protonix 40 mg daily May feed patient as tolerated Monitor H&H Repeat EGD in two-month Jossue Dover MD Oct 10, 2017 19:45
[2017-10-11] VITALS: BP 110/76; PULSE 82; RESP 19; TEMP 98.9; O2SAT 95
[2017-10-11 08:00] VITALS: BP 132/65; PULSE 76; RESP 19; TEMP 97.9; O2SAT 96
[2017-10-11] MEDS: SODIUM CHLORIDE 0.9% FLUSH 10 ML FLUSH IV FLUSH SCH (09:00)
[2017-10-11] MEDS: LISINOPRIL 20 MG TAB PO SCH (09:00)
[2017-10-11] MEDS: TAMSULOSIN HCL 0.4 MG CAP PO SCH (09:00)
[2017-10-11] MEDS: DOCUSATE SODIUM 50 MG/SENNA 8.6 MG TAB PO SCH (09:00)
[2017-10-11] MEDS: OSELTAMIVIR PHOSPHATE 75 MG CAP PO SCH (09:00)
--- NOTE | 2017-10-11 09:42 | EKG ---
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
[2017-10-11] MEDS ORDERED: PANTOPRAZOLE SOD 40 MG DELAYED RELEASE TAB PO SCH (10:15)
[2017-10-11] MEDS ORDERED: PROT40TA PO (10:19)
[2017-10-11] MEDS ORDERED: TAMS5CAP PO (10:19)
[2017-10-11] MEDS ORDERED: OSEL75 PO (10:19)
[2017-10-11 11:27] LABS: HEMATOCRIT 32.1 % (39.0-51.0); HEMOGLOBIN 11.1 GM/DL (13.0-17.0); MEAN CELL VOLUME 97.7 FL (80.0-100.0); MEAN CORPUSCULAR HEMOGLOBIN 33.7 PG (27.0-34.0); MEAN CORPUSCULAR HGB CONC 34.5 % (32.0-36.0); MEAN PLATELET VOLUME 8.4 FL (7.0-11.0); PLATELET COUNT 157 TH/MM3 (150-450); RED BLOOD COUNT 3.29 MIL/MM3 (4.50-5.90); RED CELL DISTRIBUTION WIDTH 13.2 % (11.6-17.2); WHITE BLOOD COUNT 6.1 TH/MM3 (4.0-11.0)
[2017-10-11 11:39] LABS: BICARBONATE 25.2 MEQ/L (21.0-32.0); CALCIUM 8.5 MG/DL (8.5-10.1); CREATININE 1.01 MG/DL (0.60-1.30)
[2017-10-11 12:00] VITALS: BP 101/84; PULSE 66; RESP 19; TEMP 96.4; O2SAT 94
--- NOTE | 2017-10-11 12:29 | HHI.DCPOC ---
Discharge Care Plan Diagnosis: (1) Esophagitis (2) Gastric ulcer (3) Esophageal stricture (4) GI bleed (5) Influenza (6) Urinary retention Goals to Promote Your Health * To prevent worsening of your condition and complications * To maintain your health at the optimal level Directions to Meet Your Goals Take your medications as prescribed Follow your dietary instruction Follow activity as directed Keep your appointments as scheduled Take your immunizations and boosters as scheduled If your symptoms worsen call your PCP, if no PCP go to Urgent Care Center or Emergency Room Smoking is Dangerous to Your Health. Avoid second hand smoke Call the 24-hour hour crisis hotline for domestic abuse at Frank Mccray MD Oct 11, 2017 12:28
--- NOTE | 2017-10-11 12:33 | HHI.DS ---
Discharge Summary Admission Date Oct 10, 2017 at 00:14 Discharge Date: Oct 11, 2017 Admitting Diagnosis GI Bleed, Influenza, Urinary retention (1) GI bleed ICD Code: K92.2 - Gastrointestinal hemorrhage, unspecified (2) Influenza ICD Code: J11.1 - Influenza due to unidentified influenza virus with other respiratory manifestations (3) Urinary retention ICD Code: R33.9 - Retention of urine, unspecified (4) Esophagitis ICD Code: K20.9 - Esophagitis, unspecified (5) Esophageal stricture ICD Code: K22.2 - Esophageal obstruction (6) Gastric ulcer ICD Code: K25.9 - Gastric ulcer, unspecified as acute or chronic, without hemorrhage or perforation (7) Acute blood loss anemia ICD Code: D62 - Acute posthemorrhagic anemia Procedures SP EGD biopsy. Small gastric ulcer biopsy was done from the antrum to rule out H. pylori Mild esophagitis biopsy from the GE junction Esophageal stricture status post dilation with savory guidewire size 17 mm Brief History - From Admission This is a pleasant 81-year-old male patient with known medical history of hypertension and GERD who presented to the ED with multiple complaints including cough and congestion, urinary retention and rectal bleeding. Patient states that for the past 2 days he has had a nonproductive cough and congestion , shortness of breath, generalized weakness and body aches. Is also complains of urinary frequency, denies any dysuria. Does admit to subjective fevers. Denies any nausea, vomiting or diarrhea. Does state that he is noticed blood from his rectum as well for the past 2 days. Denies any history of UTI or kidney stones. Does admit to hemorrhoids. Underwent a colonoscopy 3 years ago which was reportedly unremarkable. Patient does take a daily aspirin. As well as ibuprofen for arthritic pain twice a day. Does admit to poor appetite. Patient is visiting from [place] on a bus tour. Supposed to return home on Sunday morning. CBC/BMP: 10/11/17 1101 10/11/17 1101 Significant Findings Laboratory Tests Test 10/09/17 21:45 10/10/17 00:30 10/10/17 08:20 10/11/17 11:01 Red Blood Count 3.65 MIL/MM3 (4.50-5.90) 3.36 MIL/MM3 (4.50-5.90) 3.29 MIL/MM3 (4.50-5.90) Hemoglobin 12.7 GM/DL (13.0-17.0) 11.4 GM/DL (13.0-17.0) 11.1 GM/DL (13.0-17.0) Hematocrit 35.7 % (39.0-51.0) 32.8 % (39.0-51.0) 32.1 % (39.0-51.0) Mean Corpuscular Hemoglobin 34.9 PG (27.0-34.0) Neutrophils (%) (Auto) 75.4 % (16.0-70.0) Monocytes (%) (Auto) 14.2 % (0.0-8.0) 16.3 % (0.0-8.0) Lymphocytes # (Auto) 0.7 TH/MM3 (1.0-4.8) Monocytes # (Auto) 1.0 TH/MM3 (0-0.9) 1.1 TH/MM3 (0-0.9) Blood Urea Nitrogen 19 MG/DL (7-18) 19 MG/DL (7-18) Random Glucose 118 MG/DL (74-106) Estimat Glomerular Filtration Rate 65 ML/MIN (>89) 85 ML/MIN (>89) 71 ML/MIN (>89) Total Creatine Kinase 740 U/L (39-308) 596 U/L (39-308) B-Type Natriuretic Peptide 171 PG/ML (0-100) Platelet Count 144 TH/MM3 (150-450) Calcium Level 8.1 MG/DL (8.5-10.1) Chloride Level 108 MEQ/L (98-107) Imaging Last Impressions Abdomen/Pelvis CT 10/09/17 5510 Signed Impressions: Service Date/Time: Monday, October 09, 2017 23:13 - CONCLUSION: 1. Several punctate bilateral renal calyceal calculi. No hydronephrosis. 2. Moderate to severe distention of urinary bladder consistent with bladder outlet obstruction versus neurogenic bladder. Patient may benefit from Bunch decompression. 3. Colonic diverticulosis without significant inflammatory change to suggest diverticulitis. 4. 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 5. Subcentimeter hypodense cystic lesion in the left kidney which is too small to fully characterize. 6. Levoscoliosis of the lumbar spine with associated advanced degenerative spondylosis. Collin Silver MD Chest X-Ray 10/09/17 2149 Signed Impressions: Service Date/Time: Monday, October 09, 2017 22:11 - CONCLUSION: 1. No acute cardiopulmonary disease. Bob Andres MD Pt Condition on Discharge: Stable Discharge Disposition: Discharge Home Discharge Instructions DIET: Follow Instructions for: As Tolerated, No Restrictions Activities you can perform: Regular-No Restrictions Frank Mccray MD Oct 11, 2017 12:33
--- NOTE | 2017-10-11 15:32 | HHI.GIFU ---
Subjective Remarks Pt OOB to chair, waiting to go home. Said the susan rectal bleeding and now he is having reddish soft stools. (Halima Olivares) Objective Vitals I&O Vital Signs Date Time Temp Pulse Resp B/P (MAP) Pulse Ox O2 Delivery O2 Flow Rate FiO2 10/11/17 12:00 96.4 66 19 101/84 (90) 94 10/11/17 11:49 21 10/11/17 08:00 97.9 76 19 132/65 (87) 96 10/11/17 00:00 98.9 82 19 110/76 (87) 95 10/10/17 20:00 98.7 84 19 115/71 (86) 96 10/10/17 17:45 96 Nasal Cannula 2.00 I/O 10/10/17 10/10/17 10/10/17 10/11/17 10/11/17 10/11/17 07:00 15:00 23:00 07:00 15:00 23:00 Intake Total 500 ml 1350 ml 0 ml Output Total 600 ml 800 ml 1900 ml 700 ml Balance -100 ml -800 ml -550 ml -700 ml Intake Oral 0 ml 0 ml 0 ml IV Total 500 ml 1000 ml Other 350 ml Output Urine Total 600 ml 800 ml 1900 ml 700 ml # Bowel Movements 0 1 1 Laboratory Laboratory Tests Test 10/11/17 11:01 White Blood Count 6.1 Red Blood Count 3.29 Hemoglobin 11.1 Hematocrit 32.1 Mean Corpuscular Volume 97.7 Mean Corpuscular Hemoglobin 33.7 Mean Corpuscular Hemoglobin Concent 34.5 Red Cell Distribution Width 13.2 Platelet Count 157 Mean Platelet Volume 8.4 Blood Urea Nitrogen 19 Creatinine 1.01 Random Glucose 103 Calcium Level 8.5 Sodium Level 140 Potassium Level 4.1 Chloride Level 108 Carbon Dioxide Level 25.2 Anion Gap 7 Estimat Glomerular Filtration Rate 71 Date/Time Source Procedure Growth Status 10/09/17 21:45 Nasal Aspirate Influenza Types A,B Antigen ([facility]) - Final Positive For Flu A Antigen Complete Imaging Last Impressions Abdomen/Pelvis CT 10/09/17 3059 Signed Impressions: Service Date/Time: Monday, October 09, 2017 23:13 - CONCLUSION: 1. Several punctate bilateral renal calyceal calculi. No hydronephrosis. 2. Moderate to severe distention of urinary bladder consistent with bladder outlet obstruction versus neurogenic bladder. Patient may benefit from Bunch decompression. 3. Colonic diverticulosis without significant inflammatory change to suggest diverticulitis. 4. 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 5. Subcentimeter hypodense cystic lesion in the left kidney which is too small to fully characterize. 6. Levoscoliosis of the lumbar spine with associated advanced degenerative spondylosis. Collin Silver MD Chest X-Ray 10/09/172142 Signed Impressions: Service Date/Time: Monday, October 09, 2017 22:11 - CONCLUSION: 1. No acute cardiopulmonary disease. Bob Andres MD Physical Exam HEENT: PERRL; normocephalic; atraumatic; no jaundice. CHEST: CTA CARDIAC: RRR ABDOMEN: Soft, nondistended, nontender; no hepatosplenomegaly; bowel sounds are present in all four quadrants. EXTREMITIES: No clubbing, cyanosis, or edema. SKIN: Normal; no rash; no jaundice. WARNING ANALYST: No focal deficits; alert and oriented times three. (Halima Olivares) Assessment and Plan Plan ASSESSMENT - black tarry stool, BRBPR - few days ago onset BRBPR and now having black tarry stool. Last colonoscopy [address] shows diverticulosis. he wants to go home and will not agree to recommended EGD and colonoscopy, will agree to EGD today. - anemia - mild, 2/2 above. - influenza A 10/11/17 s/p EGD and dilatation 10/10/17 with findings small gastric ulcer, esophagitis, stricture. no more susan bleeding but he is having red stool. HH is stable. PLAN - continue PPI - will need EGD 2 months - outpt colonoscopy - f/u with GI after d/c - ok to d/c from GI standpoint pt seen by myself and Dr Stanislaw medrano this note is on his behalf (Halima Olivares) Plan Patient was seen and examined, agree with above-noted, doing better, was to go home to travel back to his home town, I advised him to see social director when he get there, watch for bleeding since he had small ulcer (Jossue Dover MD) Halima Olivares Oct 11, 2017 15:32 Jossue Dover MD Oct 11, 2017 17:48
== END 2017-10-11 17:05 | disposition home or self-care (01) | DRG 392 ==
LOC: NEPC 21:14 → NEDA 10-10 00:14 → N07B 10-10 02:00
PROVIDERS: ADMIT Hospitalist; ATTEND Hospitalist
PROC: 0DB78ZX Excision of Stomach, Pylorus, Via Natural or Artificial Opening Endoscopic, Diagnostic (ICD-10-PCS; 2017-10-10)
PROC: 0D758ZZ Dilation of Esophagus, Via Natural or Artificial Opening Endoscopic (ICD-10-PCS; 2017-10-10)
PROC: 0T9B70Z Drainage of Bladder with Drainage Device, Via Natural or Artificial Opening (ICD-10-PCS; 2017-10-10)
PROC: 0DB38ZX Excision of Lower Esophagus, Via Natural or Artificial Opening Endoscopic, Diagnostic (ICD-10-PCS; principal; 2017-10-10 15:50)
DX: K21.0 Gastro-esophageal reflux disease with esophagitis (principal); R06.09 Other forms of dyspnea; D62 Acute posthemorrhagic anemia; K92.1 Melena; K22.2 Esophageal obstruction; K25.9 Gastric ulcer, unspecified as acute or chronic, without hemorrhage or perforation; I10 Essential (primary) hypertension; J10.1 Influenza due to other identified influenza virus with other respiratory manifestations; R07.89 Other chest pain; N32.0 Bladder-neck obstruction; N20.0 Calculus of kidney; E78.5 Hyperlipidemia, unspecified; R53.1 Weakness; I71.9 Aortic aneurysm of unspecified site, without rupture; K64.9 Unspecified hemorrhoids; K64.8 Other hemorrhoids; K57.30 Diverticulosis of large intestine without perforation or abscess without bleeding; Z79.82 Long term (current) use of aspirin
CPT/HCPCS: 71045; 74177; 80048; 80053; 81001; 82550; 82552; 83690; 83880; 84484; 85025; 85027; 85610; 85730; 86850; 86900; 86901; 87804; 88305; 88312; 93005; 96361; 96365; C1769; C9113; J0330; J2370; J7040; Q9967